=== PATIENT | female | born 1975 | race Caucasian/White ===

== ENCOUNTER 2018-08-13 07:02 | Outpatient (CLI) | payer BC ==
[2018-08-13] MEDS ORDERED: Gadobenate Dimeglumine 529 MG/1 ML (20ML VIAL) ONE (09:00)
--- NOTE | 2018-08-13 11:51 | MRI ---
EXAM: MRI Brain W WO Con PROVIDED CLINICAL HISTORY: Multiple sclerosis. Follow-up evaluation. COMPARISON: 06/17/2014. FINDINGS: Multiple scattered punctate and patchy areas of increased FLAIR and T2-weighted signal intensity are seen in the periventricular and subcortical white matter with signal abnormalities in the periventricular location demonstrating appearance most suggestive of a demyelinating process such as multiple sclerosis corresponding to patient's history. The signal abnormalities are unchanged in number or appearance compared to the prior exam. No abnormal enhancement is seen after the administra tion of intravenous contrast to suggest an active demyelinating plaque. No acute infarction is seen. The septum pellucidum and third ventricle in the midline. The ventricular system is normal in size, s hape, and position. Appropriate flow voids are demonstrated at the skull base. Visualized paranasal sinuses, orbits, and skull base have a normal MRI appearance. IMPRESSION: Stable scattered signal abnormalities throughout the periventricular and subcortical white matter com patible with a demyelinating process such as multiple sclerosis.
--- NOTE | 2018-08-13 12:06 | MRI ---
EXAM: MRI Thoracic Spine W WO Con PROVIDED CLINICAL HISTORY: Multiple sclerosis be COMPARISON: 03/21/2011. FINDINGS: Again noted is the focal signal abnormality within the spinal cord at the T6-7 level. Overall intensi ty of the signal abnormality has decreased compared to the prior study. There has also been resolution of the enhancement involving this lesion which was present on the prior exam. No new or ad ditional signal abnormalities are seen within the spinal cord, and no other areas of abnormal enhancement are seen to suggest an active demyelinating plaque on today's exam. 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 This is stable in appearance compared to the prior exam. Conus medullaris is incompletely imaged but likely terminates near the L1-2 level. Minimal disc degenerative changes are seen in the thoracic spine at the T5-6, T6-7, T11-T12 levels wi th minimal disc osteophyte complexes at these levels. There is slight effacement of the ventral subarachnoid space and slight effacement of the left anterolateral aspect spinal cord at T5-6 level w ithout significant central canal narrowing. The neural foramina are patent all levels of the thoracic spine. The increased T1 and T2-weighted signal intensity foci in the T6 vertebral body as well as T9 vertebr al body are again seen and may represent small hemangiomas or focal areas of fat. Paravertebral soft tissues demonstrate normal signal intensity. IMPRESSION: 1. Small intramedullary hyperintense lesion in the spinal cord at the T6-7 level with resolution of e nhancement seen on the prior exam as well as decrease in the intensity of the signal abnormality compared to prior study. Findings are likely reflective of a demyelinating process given findings on MRI of the brain as well as patient's clinical history. No new signal abnormalities are seen in the spinal cord, and no abnormal areas of enhancement are identified. 2. 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
--- NOTE | 2018-08-13 12:47 | MRI ---
MRI OF THE CERVICAL SPINE WITH AND WITHOUT CONTRAST: 08/13/18 HISTORY: Multiple sclerosis. COMPARISON: 03/21/11. FINDINGS: Appropriate T1 marrow signal intensity of the cervical vertebrae. Cervical spine vertebral body heigh t is maintained. No fracture. There is no abnormal enhancement with regards to the vertebral bodies. No significant STIR hyperintensity to suggest vertebral body edema or ligamentous injury. The visualized brain parenchyma, cervicomedullary junction, cervical cord and the upper thoracic cord have an overall normal size. There is a T2 hyperintensity along the left aspect of the cervical cord at the C2-C3 disc space likely representing a demyelinating plaque. No evidence of associated enhanc ement to suggest active demyelination. Additional cord signal abnormality throughout the cervical cor d is not appreciated. No cord expansion. No cord malacia. No abnormal enhancement. C2-C3: No significant central canal stenosis. Mild right foraminal narrowing due to uncovertebral hyp ertrophy. Left foramen is patent. C3-C4: Generalized disc bulge abuts the thecal sac. No significant central canal stenosis or signific ant foraminal narrowing. C4-C5: Generalized disc bulge abuts the thecal sac. No significant central canal stenosis or foramina l narrowing. C5-C6: There is a central disc protrusion with a right paracentral/subarticular disc protrusion. Ther e is mass effect and deformity of the right hemicord without cord signal abnormality. There is severe right foraminal narrowing due to disc herniation. Mild left foraminal narrowing. C6-C7: No significant central canal stenosis or neural foraminal narrowing. C7-T1: No significant central canal stenosis or neural foraminal narrowing. IMPRESSION: 1. Redemonstration of a solitary demyelinating plaque along the left aspect of the cervical spin e at the C2-C3 disc space. No evidence of enhancement to suggest active demyelination. 2. Degenerative changes of the cervical spine as described. There appears to be an acute disc he rniation in the right subarticular zone with extension to the right neural foramen at C5-C6. There is mass effect and obscuration of the foraminal right C6 nerve root. POS: C
== END 2018-08-13 07:03 | disposition home or self-care (01) ==
LOC: SCSMRI 07:02
PROVIDERS: ATTEND Psychiatry & Neurology Neurology
DX: G35 Multiple sclerosis (principal); M47.812 Spondylosis without myelopathy or radiculopathy, cervical region; M48.02 Spinal stenosis, cervical region; M89.9 Disorder of bone, unspecified; G95.0 Syringomyelia and syringobulbia
CPT/HCPCS: 70553; 72156; 72157; A9577